=== PATIENT | male | born 1985 | race Asian ===

== ENCOUNTER → 2020-03-30 13:38 | Outpatient (CLI) | payer OTHER, SELFPAY ==
[2020-03-31 02:08] LABS: COVID19 Sendout Not Detected (Not Detect)
== END ==
PROVIDERS: PCP Family Medicine; Visit Provider Physician Assistant
DX: Z11.59 Encounter for screening for other viral diseases (principal)
CPT/HCPCS: 87635

== ENCOUNTER 2020-04-02 06:33 | Day surgery (SDC) | payer OTHER, SELFPAY ==
[2020-03-18 08:42] VITALS: BMI 31.8
[2020-04-02] VITALS (10 sets, daily range): BP systolic 118–155; BP diastolic 61–99; PULSE 70–92; RESP 10–20; TEMP 36.1–37.4; O2SAT 95–100; BMI 31.8
[2020-04-02] MEDS: LACTATED RINGERS 1,000 ML 100 ML IV ×2 (07:45→10:38)
--- NOTE | 2020-04-02 08:14 | PM.HP.1 ---
History of Present Illness History of Present Illness Date Patient Seen: 04/02/20 Time Patient Seen: 08:14 Chief complaint: [id number] Narrative: This is a 34-year-old man with history of obesity with BMI of 32, G6PD deficiency, left inguinal hernia repaired open in 2004, psoriatic rash, GERD, who presents with a new right inguinal hernia. He noticed a pain and bulge in the right groin, and had a ultrasound which showed a defect consistent with an inguinal hernia. He denies any symptoms of obstruction or incarceration. He denies chronic cough or chronic constipation. The pain has been worsening over time and limiting his ability to do exercise. ROS: Positive for skin rash, reflux symptoms. Thirteen system review is otherwise negative other than as mentioned below and in HPI. PE: GENERAL: Well groomed and cooperative. Appears stated age. Answers questions promptly and appropriately. Vital signs noted. HENT: Normocephalic, atraumatic. Hearing intact. Oral mucosa is pink and moist. EYES: Conjunctiva pink, sclera white, no periorbital swelling. CARDIOVASCULAR: Regular rate. No pedal edema. RESPIRATORY: Non-tachypneic, breathing comfortably on room air. GASTROINTESTINAL: Abdomen soft and non-distended GENITALURINARY: No flank tenderness. Left groin slight laxity but no obvious hernia. Well-healed incisional scar from hernia repair, right groin palpable hernia, with positive reflex on cough exam, completely reducible, minimal tenderness MUSCULOSKELETAL: Equal tone and mass bilaterally. SKIN: Warm, dry, soft, appropriate color for ethnicity. No other lesions, rashes, or wounds. NEURO: Alert and Oriented X 3. No gross sensory deficits, or cognitive issues. PSYCH: Appropriate affect and mood. Patient History Medical History GERD (gastroesophageal reflux disease) (Acute) Rash (Acute) Surgical History Hx of left inguinal hernia repair (Acute 2004) Hx of wisdom tooth extraction (Acute) Family & Social History Social History: household members none Tobacco & Substance use: Smoking Status Never smoker alcohol intake current alcohol intake frequency a few times a month Substance Use Type does not use Meds Home Medications and Allergies Home Medications Medication Instructions Recorded Confirmed Type calcipotriene 0.005 % topical cream 1 applictn TOP BID 01/24/20 04/02/20 History ketoconazole 2 % topical cream 1 applictn TOP DAILY 01/24/20 04/02/20 History omeprazole 20 mg capsule,delayed 20 mg PO DAILY 01/24/20 04/02/20 History release ranitidine HCl 150 mg capsule 150 mg PO DAILY PRN 01/24/20 03/30/20 History tacrolimus 0.1 % topical ointment 1 applictn TOP BID 01/24/20 04/02/20 History triamcinolone acetonide 0.1 % 1 applictn TOP DAILY 01/24/20 04/02/20 History topical cream zolpidem 5 mg tablet 5 mg PO BEDTIME PRN 01/24/20 04/02/20 History Allergies Allergy/AdvReac Type Severity Reaction Status Date / Time aspirin Allergy Unknown g6pd Verified 04/02/20 07:17 deficit Sulfa (Sulfonamide Allergy Unknown g6pd Verified 04/02/20 07:17 Antibiotics) deficit Exam Vital Signs (past 8 hours): - 04/02/20 07:20 Temperature 99.3 F Pulse Rate 70 Respiratory Rate 17 Blood Pressure 138/99 H Pulse Oximetry 100 Oxygen Delivery Method Room Air Objective Imaging US - abdomen: Radiologist's impression: Right inguinal hernia Assessment & Plan Assessment & Plan narrative: This is a 34-year-old man with a right inguinal hernia. Risks and benefits of right inguinal hernia repair were discussed. He prefers to have an open repair with mesh. He requests to have no ketamine given to him, and he requests to avoid general anesthesia. His prior hernia repair was done under spinal anesthesia. He had a mild rash in the perineum and scrotum in December. He says this was diagnosed as psoriasis. He was treated with topical triamcinolone, tacrolimus and calcipotriene. These were placed on the area where his surgical incisions would be. He is supposed to be on these ointments until June. I have told him that it is okay to continue using them, as long as he avoids placing any of these ointments on the surgical site. 40 minutes were spent face to face with the patient. More than 50% of the time was spent in counseling and co-ordination of care regarding prior hernia repair, options for surgery including laparoscopic or open, risks of anesthesia, options for analgesia and anesthesia during surgery and after surgery, risks and benefits of surgery, and recovery expectations. Plan: Open right inguinal hernia repair with mesh Off of work for 2 weeks, no lifting more than 10 lb and no straining for 6 weeks after surgery COVID-19 COVID-19 status: Negative Time Spent With Patient Time with patient: Greater than 35 minutes
[2020-04-02] MEDS: CEFAZOLIN 2 GM/100 ML FROZ.PIGGY IV (08:40)
--- NOTE | 2020-04-02 09:00 | SUR.OPER ---
Supine on padded OR bed, head on pillow, arms secured on padded arm boards at <90 degrees abduction, legs uncrossed, safety belt at thigh, tape over blanket over lower legs.
[2020-04-02] MEDS: BUPIVACAINE 0.25% W/ EPI 30 ML VIAL 60 ML INJ (09:09)
[2020-04-02] MEDS: BUPIVACAINE LIPOSOME 266 MG/20 ML VIAL INJ (09:10)
[2020-04-02] MEDS: OXYCODONE IR 5 MG TABLET PO ×2 (10:42→11:13)
[2020-04-02] MEDS: ACETAMINOPHEN 325 MG TABLET 975 MG PO (10:44)
--- NOTE | 2020-04-02 12:52 | PM.OP.1 ---
Operative Date/Time/Diagnoses Date of procedure: 04/02/20 Time of procedure: 12:52 Pre-op diagnosis: right inguinal hernia, tight opening, high risk for incarceration Post-op diagnosis: same Procedure & Clinicians Procedure: 1) Open repair of incarcerated right inguinal hernia with mesh 2) removal of spermatic cord lipoma 3) Excision of ilioinguinal nerve branch Same procedure as scheduled: Yes Indications: This is a 34 yo man with symptomatic right inguinal hernia worsening over the past several months. Because of his pain and he narrow neck of his hernia I recommended we go ahead with repair rather than delaying any further as he is at significant risk of incarceration. Surgeon: Lourdes Law Click Yes if Unassisted: Yes Anesthesia Type: General (LMA) Operative Notes Specimen(s): none sent Prosthetic devices, grafts, tissues, transplants, or devices: Bard soft mesh Estimated Blood Loss (mL): 1 Blood products transfused: none Procedure in detail: The patient was brought into the OR, placed supine on the OR table, and appropriate preoperative antibiotics were given. Sequential compression devices were placed on both legs and turned on. General anesthesia was induced and the patient was intubated with an LMA by the anesthesiologist. The right lower abdomen and groin were prepped and draped in sterile fashion for inguinal incision. A surgical time out was conducted. Local anesthetic was infiltrated into the skin using 0.25% Marcaine with Epi, and a 15 blade was used to make an oblique 8cm incision two finger breadths superior to the inguinal ligament. Dissection was carried down through the subcutaneous fat and chris's fascia. The aponeurosis of the external oblique was encountered. Local anesthetic was injected under the aponeurosis, giving a field block. I opened the aponeurosis using a 15 blade, and extended the incision with Metzenbaum scissors toward the pubic tubercle and laterally toward the ASIS. The spermatic cord was identified and encircled with a ahmet drain. There was a very attenuated nerve fiber travelling along the surface of the cord and associated hernia sac. The nerve appeared stretched out and damaged by the chronic hernia. I divided the attenuated nerve fiber with [place], excised the damaged portion, and tucked the proximal end into the surrounding muscle. This was likely a branch of the ilioinguinal nerve. Cord lipomas and hernia sac were dissected free from the spermatic cord. The fat tissue was not easily reduced because the hernia neck was very narrow. I then suture ligated the cord lipomas as high as I could with 3-0 Vicryl, and divided with cautery. The stump of the incarcerated hernia sac and ligated cord lipomas was then reduced through a very narrow necked indirect inguinal hernia defect. There was also a bulging of preperitoneal fat through the direct hernia space. I then gave local anesthetic in the inguinal canal floor, pubic tubercle, and conjoint tendon. I also infiltrated the area with Exparel in small aliquots. I then plicated the transversalis fascia with 2-0 PDS, including bites of inguinal ligament inferiorly and conjoint tendon superiorly. A BARD macroporous soft mesh was then brought into the field and shaped to fit the groin. I secured it to the ligaments overlying the pubic tubercle with 2cm overlap, and then secured it to the inguinal ligament inferiorly and the conjoint tendon superiorly with 2-0 PDS suture. I made an opening in the mesh to accommodate the spermatic cord. Once the mesh was secure, I closed the external oblique aponeurosis with 3-0 Vicryl. I the chris's fascia was closed with 3-0 Vicryl. The remaining local anesthetic was given in the skin and soft tissue, for a total of 60mL of 0.25% Marcaine with epi and 20mL of Exparel. The skin was closed with running 4-0 Monocryl subcuticular stitch. The skin edges were sealed with Dermabond. The patient was awakened from anesthesia and extubated. He tolerated the procedure well. Needle, sponge and instrument counts were correct x 2. The patient was transferred to PACU in stable condition. Complications: none Post-operative Condition: stable Disposition: PACU
== END 2020-04-02 11:30 | disposition home or self-care (01) ==
PROVIDERS: PCP Family Medicine; Referring Provider Surgery; Visit Provider Surgery
PROC: (CPT 49507; principal; 2020-04-02 07:45)
DX: K40.30 Unilateral inguinal hernia, with obstruction, without gangrene, not specified as recurrent (principal); K21.9 Gastro-esophageal reflux disease without esophagitis; E66.9 Obesity, unspecified; Z68.32 Body mass index [BMI] 32.0-32.9, adult; D17.6 Benign lipomatous neoplasm of spermatic cord
CPT/HCPCS: 49507; C1781; C9290; J0690; J2250; J3010